=== PATIENT | female | born 1985 | race African-American/Black ===

== ENCOUNTER 2016-09-15 07:29 | Emergency (ER) | payer SELFPAY ==
[2016-09-15 07:39] VITALS: BP 156/102
[2016-09-15] MEDS ORDERED: ASPIRIN 81 MG TABLET, CHEWABLE PO ONE (07:56)
--- NOTE | 2016-09-15 08:09 | ER Document Report ---
ED Cardiac - General Chief Complaint: Chest Pain Stated Complaint: CHEST PAIN Mode of Arrival: Ambulatory Information source: Patient Notes: Patient presents complaining of midsternal chest pain that she describes as a pulsing tightness off and on for the past 3 days that worsened today. Patient complains of occasionally feeling lightheaded and what she describes feeling off balance. Patient also reports some hot and cold chills. Patient states chest pain is worse when she is laying flat. Patient denies any cough, urinary symptoms, abdominal pain, nausea, or vomiting. Patient states she has had chest pain similar to this several times a month chronically for years but has never been diagnosed with anything previously except for palpitations. TRAVEL OUTSIDE OF THE [place] IN LAST 30 DAYS: No - HPI Patient complains to provider of: Chest pain, Chest tightness. denies: Shortness of breath Was the onset of pain: Gradual Is the pain a: Chronic problem Chest pain location: Substernal Quality of pain: Tightness Pain level currently: 4 Chest pain precipitating factors: At Rest Cardiac risk factors: Smoker, + Family history. denies: Diabetes, Hypertension , Dyslipidemia, Hx DE Associated symptoms: Lightheaded. 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 Denies: Hx Hiatal Hernia, Hx Ulcer Infectious Medical History: Denies: Hx HIV Past Surgical History: Reports: Hx Section Review of Systems - Review of Systems Constitutional: No symptoms reported. denies: Fever, Recent illness EENT: No symptoms reported Cardiovascular: Chest pain, Lightheaded. denies: Palpitations Respiratory: No symptoms reported. denies: Cough, Short of breath Gastrointestinal: No symptoms reported. denies: Abdominal pain, Nausea, Vomiting Genitourinary: No symptoms reported. denies: Dysuria, Flank pain Female Genitourinary: No symptoms reported Musculoskeletal: No symptoms reported. denies: Back pain, Neck pain Skin: No symptoms reported Hematologic/Lymphatic: No symptoms reported Neurological/Psychological: No symptoms reported Physical Exam - Vital signs Vitals: Temp Pulse Resp BP Pulse Ox 98.2 F 76 14 156/102 H 100 09/15/16 07:36 09/15/16 07:36 09/15/16 07:36 09/15/16 07:36 09/15/16 07:36 - General General appearance: Appears well, Alert In distress: None Notes: PHYSICAL EXAMINATION: GENERAL: Well-appearing and in no acute distress. HEAD: Atraumatic, normocephalic. EYES: sclera anicteric, conjunctiva are normal. ENT: nares patent. Moist mucous membranes. NECK: Normal range of motion, supple without lymphadenopathy LUNGS: CTAB and equal. No wheezes rales or rhonchi. Patient's anterior chest wall tender with palpation. HEART: Regular rate and rhythm ABDOMEN: Soft, nontender, normal bowel sounds, no guarding. EXTREMITIES: Normal range of motion, no pitting edema. No cyanosis. BACK: No midline tenderness, no step-off or deformity. No CVA tenderness NEUROLOGICAL: Cranial nerves grossly intact. Normal speech. Normal gait. PSYCH: Normal mood, normal affect. SKIN: Warm, Dry, normal turgor, no rashes or lesions noted Course - Re-evaluation Re-evalutation: 09/15/16 The patient has atypical chest pain as the patient's chest pain is not suggestive of pulmonary embolus, cardiac ischemia, aortic dissection, or other serious etiology. Given the extremely low risk of these diagnoses for the test in evaluation for these possibilities does not appear to be indicated at this time. Patient has been instructed to return if the symptoms worsen or change in any way. Heart score 1, perc negative. 09/15/[address] pan regarding patient presentation, history, and diagnostics. Agrees with discharge plan of care. Recommends advising patient to discontinue use of marijuana as it has been known to cause costochondritis - Vital Signs Vital signs: Temp Pulse Resp BP Pulse Ox 98.2 F 76 23 H 156/102 H 100 09/15/16 07:36 09/15/16 07:36 09/15/16 11:00 09/15/16 07:36 09/15/16 11:00 - Laboratory Result Diagrams: 09/15/16 08:21 09/15/16 08:21 Laboratory results interpreted by me: 09/15/16 09/15/16 09/15/16 08:21 08:21 08:21 RDW 16.1 H Chloride 108 H Urine Blood MODERATE H Labs- Entire Visit 09/15/16 09/15/16 09/15/16 08:21 08:21 08:21 WBC 4.7 RBC 4.47 Hgb 12.8 Hct 37.9 MCV 85 MCH 28.7 MCHC 33.8 RDW 16.1 H Plt Count 317 Seg Neutrophils % 51.9 Lymphocytes % 38.3 Monocytes % 5.8 Eosinophils % 3.0 Basophils % 1.0 Absolute Neutrophils 2.4 Absolute Lymphocytes 1.8 Absolute Monocytes 0.3 Absolute Eosinophils 0.1 Absolute Basophils 0.0 Sodium 144.1 Potassium 4.2 Chloride 108 H Carbon Dioxide 23 Anion Gap 13 BUN 7 Creatinine 0.74 Est GFR ( Amer) > 60 Est GFR (Non-Af Amer) > 60 Glucose 93 Calcium 9.9 Total Bilirubin 1.0 Direct Bilirubin 0.3 Indirect Bilirubin Not Reportable Neonat Total Bilirubin Not Reportable AST 28 ALT 31 Alkaline Phosphatase 122 Creatine Kinase 128 CK-MB (CK-2) 0.69 Troponin I < 0.012 Total Protein 8.2 Albumin 4.7 Lipase 77.8 Serum HCG, Qual Urine Color Urine Appearance Urine pH Ur Specific Douglass Urine Protein Urine Glucose (UA) Urine Ketones Urine Blood Urine Nitrite Urine Bilirubin Urine Urobilinogen Ur Leukocyte Esterase Urine WBC (Auto) Urine RBC (Auto) Squamous Epi Cells Auto Urine Mucus (Auto) Urine Ascorbic Acid Urine Opiates Screen Urine Methadone Screen Ur Barbiturates Screen Ur Phencyclidine Scrn Ur Amphetamines Screen U Benzodiazepines Scrn Urine Cocaine Screen U Marijuana (THC) Screen 09/15/16 09/15/16 09/15/16 08:21 08:21 08:21 WBC RBC Hgb Hct MCV MCH MCHC RDW Plt Count Seg Neutrophils % Lymphocytes % Monocytes % Eosinophils % Basophils % Absolute Neutrophils Absolute Lymphocytes Absolute Monocytes Absolute Eosinophils Absolute Basophils Sodium Potassium Chloride Carbon Dioxide Anion Gap BUN Creatinine Est GFR ( Amer) Est GFR (Non-Af Amer) Glucose Calcium Total Bilirubin Direct Bilirubin Indirect Bilirubin Neonat Total Bilirubin AST ALT Alkaline Phosphatase Creatine Kinase CK-MB (CK-2) Troponin I Total Protein Albumin Lipase Serum HCG, Qual NEGATIVE Urine Color YELLOW Urine Appearance SLIGHTLY-CLOUDY Urine pH 6.0 Ur Specific [place] 1.006 Urine Protein NEGATIVE Urine Glucose (UA) NEGATIVE Urine Ketones NEGATIVE Urine Blood MODERATE H Urine Nitrite NEGATIVE Urine Bilirubin NEGATIVE Urine Urobilinogen NEGATIVE Ur Leukocyte Esterase NEGATIVE Urine WBC (Auto) 2 Urine RBC (Auto) 0 Squamous Epi Cells Auto 6 Urine Mucus (Auto) RARE Urine Ascorbic Acid NEGATIVE Urine Opiates Screen NEGATIVE Urine Methadone Screen NEGATIVE Ur Barbiturates Screen NEGATIVE Ur Phencyclidine Scrn NEGATIVE Ur Amphetamines Screen NEGATIVE U Benzodiazepines Scrn NEGATIVE Urine Cocaine Screen NEGATIVE U Marijuana (THC) Screen UNCONFIRMED POSITIVE - Diagnostic Test Radiology reviewed: Reports reviewed - EKG Interpretation by Me EKG shows normal: Sinus rhythm Rate: Normal Rhythm: NSR Discharge - Discharge Clinical Impression: Elevated blood pressure reading, Marijuana use Chest pain Qualifiers: Chest pain type: unspecified Qualified Code(s): R07.9 - Chest pain, unspecified Condition: Stable Disposition: HOME, SELF-CARE Instructions: Chest Pain of Unclear Cause ([facility]), Costochondritis ([facility]), Anti- Inflammatory Medication ([facility]) Additional Instructions: Return immediately for any new or worsening symptoms Followup with your primary care provider, call tomorrow to make a followup appointment Your blood pressure was elevated today recheck with primary doctor one to 2 days to have this reevaluated Avoid use of marijuana as this can lead to costochondritis chest pain symptoms Follow-up with a produce specialist for further evaluation, call tomorrow for an appointment Prescriptions: Naproxen [Naprosyn 250 Nmg Tablet] 1 tab PO BID #14 tablet Forms: Elevated Blood Pressure, Return to Work Referrals: [facility] [Provider Group] - Follow up tomorrow RICHIE HARTMAN MD [ACTIVE STAFF] - Follow up tomorrow
[2016-09-15 08:36] LABS: ABSOLUTE EOSINOPHILS # (AUTO) 0.1 10^3/uL (0.0-0.6); ABSOLUTE LYMPHOCYTES (AUTO) 1.8 10^3/uL (0.5-4.7); ABSOLUTE MONOCYTES (AUTO) 0.3 10^3/uL (0.1-1.4); ABSOLUTE NEUT (AUTO) 2.4 10^3/uL (1.7-8.2); HEMATOCRIT 37.9 % (36.0-47.0); HEMOGLOBIN 12.8 g/dL (12.0-15.5); HGB HCT DIFFERENCE 0.5; LYMPHOCYTES % (AUTO) 38.3 % (13-45); MEAN CORPUSCULAR HEMOGLOBIN 28.7 pg (27.0-33.4); MEAN CORPUSCULAR HGB CONC 33.8 g/dL (32.0-36.0); MEAN CORPUSCULAR VOLUME 85 fl (80-97); MONOCYTES % (AUTO) 5.8 % (3-13); RED BLOOD COUNT 4.47 10^6/uL (3.72-5.28); RED CELL DISTRIBUTION WIDTH 16.1 % (11.5-14.0); SEGMENTED NEUTROPHILS % (AUTO) 51.9 % (42-78); WHITE BLOOD COUNT 4.7 10^3/uL (4.0-10.5)
[2016-09-15 08:44] LABS: APPEARANCE,URINE SLIGHTLY-CLOUDY; BILIRUBIN,URINE NEGATIVE (NEGATIVE); GLUCOSE, URINE NEGATIVE (NEGATIVE); KETONES,URINE NEGATIVE (NEGATIVE); LEUKOCYTE ESTERASE,URINE NEGATIVE (NEGATIVE); NITRITE,URINE NEGATIVE (NEGATIVE); PROTEIN,URINE NEGATIVE (NEGATIVE); URINE SPECIFIC GRAVITY 1.006; UROBILINOGEN,URINE NEGATIVE mg/dL (<2.0)
[2016-09-15] MEDS ORDERED: MAG HYDROX/AL HYDROX/SIMETH SUSP 30 ML UDCUP PO ONE (08:51)
[2016-09-15] MEDS ORDERED: LIDOCAINE 2% VISCOUS SOLN 20 ML UDCUP PO ONE (08:51)
[2016-09-15 08:57] LABS: ALANINE AMINOTRANSFERASE 31 U/L (9-52); ALBUMIN 4.7 g/dL (3.5-5.0); ALKALINE PHOSPHATASE 122 U/L (38-126); ANION GAP 13 (5-19); ASPARTATE AMINO TRANSFERASE 28 U/L (14-36); BILIRUBIN,DIRECT 0.3 mg/dL (0.0-0.4); BLOOD UREA NITROGEN 7 mg/dL (7-20); CALCIUM 9.9 mg/dL (8.4-10.2); CARBON DIOXIDE 23 mmol/L (22-30); CHLORIDE 108 mmol/L (98-107); CREATINE KINASE 128 U/L (30-135); CREATININE RESULT 0.74 mg/dL (0.52-1.25); GLUCOSE 93 mg/dL (75-110); LIPASE 77.8 U/L (23-300); POTASSIUM 4.2 mmol/L (3.6-5.0); SODIUM 144.1 mmol/L (137-145); TOTAL PROTEIN 8.2 g/dL (6.3-8.2)
[2016-09-15 09:15] LABS: URINE BARBITURATES SCREEN NEGATIVE; URINE METHADONE SCREEN NEGATIVE; URINE OPIATES LOW NEGATIVE; URINE PHENCYCLIDINE SCREEN NEGATIVE
[2016-09-15 09:24] LABS: CREATINE KINASE MB 0.69 ng/mL (<4.55); TROPONIN I < 0.012 ng/mL
[2016-09-15] MEDS ORDERED: IBUPROFEN 800 MG TABLET PO ONE (09:38)
--- NOTE | 2016-09-15 14:27 | EKG REPORT ---
SEVERITY:- NORMAL ECG - SINUS RHYTHM : Confirmed by: Alejo Fermin 15-Sep-2016 14:26:13
== END 2016-09-15 11:15 | disposition home or self-care (01) ==
LOC: ER 07:29
DX: R07.9 Chest pain, unspecified (principal); R03.0 Elevated blood-pressure reading, without diagnosis of hypertension; F12.90 Cannabis use, unspecified, uncomplicated; F17.210 Nicotine dependence, cigarettes, uncomplicated
CPT/HCPCS: 93005; 99285; 36415; 82553; 82550; 83690; 84703; 85025; 80053; 81001; 84484; 80307; 71020; 93010; J3490

== ENCOUNTER 2017-08-20 19:35 | Emergency (ER) | payer SELFPAY ==
--- NOTE | 2017-08-20 20:23 | ER Document Report ---
ED Cardiac - General Chief Complaint: Chest Pain Stated Complaint: CHEST PAIN Time Seen by Provider: 08/20/17 20:22 Mode of Arrival: Ambulatory Information source: Patient Notes: 32 yo smoker, rare alcohol, HTN, non DM, non hormone (unknown lipid status) female c/o sharp 5/5 retrosteranl midline chest pain that radaites to the left side at 6 pm tonight while laying on stomach. Associated symptoms rapid heart beat, got up, started feeling really anxious like an tatyana feeling, felt like she couldn't get enough air, felt lightheaded. Now the pain is 3.5/5-no meds. This has been happening for years since teenage. Evaluated in [place] for same symptoms- told her that she had palpitaions, enlarged heart, heart murmur. Also been evaluated at [facility] for the same 09-15-16. Never had echocardiogram, stress test. No recent illness or fever. . FHX: mom [place] age 33, lupus , DM. 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 HEart score is 2. TRAVEL OUTSIDE OF THE [place] IN LAST 30 DAYS: No - Related Data Allergies/Adverse Reactions: codeine [Codeine] Allergy (Verified 09/15/16 07:34) Past Medical History - General Information source: Patient - Social History Smoking Status: Current Every Day Smoker Frequency of alcohol use: None Drug Abuse: None Lives with: Spouse/Significant other Family History: Reviewed & Not Pertinent, CAD - States mother had a heart attack in her 30s - Past Medical History Cardiac Medical History: Reports: Hx Heart Murmur Renal/ Medical History: Denies: Hx Peritoneal Dialysis GI Medical History: Reports: Hx Gastroesophageal Reflux Disease. Denies: Hx Hiatal Hernia, Hx Ulcer Infectious Medical History: Denies: Hx HIV Past Surgical History: Reports: Hx Section - Immunizations Hx Diphtheria, Pertussis, Tetanus Vaccination: No Review of Systems - Review of Systems Constitutional: No symptoms reported EENT: No symptoms reported Cardiovascular: See HPI Respiratory: No symptoms reported Gastrointestinal: No symptoms reported Genitourinary: No symptoms reported Female Genitourinary: No symptoms reported Musculoskeletal: No symptoms reported Skin: No symptoms reported Hematologic/Lymphatic: No symptoms reported Neurological/Psychological: No symptoms reported Physical Exam - Vital signs Vitals: Temp Pulse Resp BP Pulse Ox 98.3 F 76 14 138/91 H 100 08/20/17 20:01 08/20/17 20:01 08/20/17 20:01 08/20/17 20:01 08/20/17 20:01 Interpretation: Normal - General General appearance: Appears well, Alert In distress: None - HEENT Head: Normocephalic, Atraumatic Eyes: Normal Conjunctiva: Normal Pupils: PERRL Mucous membranes: Normal Neck: Supple. No: Lymphadenopathy - Respiratory Respiratory status: No respiratory distress Chest status: Tender - left chest wall very tender Breath sounds: Normal Chest palpation: Normal - Cardiovascular Rhythm: Regular Heart sounds: Normal auscultation Murmur: No - Abdominal Inspection: Normal Distension: No distension Bowel sounds: Normal Tenderness: Nontender Organomegaly: No organomegaly - Back Back: Normal, Nontender. No: CVA tenderness - Extremities General upper extremity: Normal inspection, Nontender, Normal color, Normal ROM , Normal temperature General lower extremity: Normal inspection, Nontender, Normal color, Normal ROM , Normal temperature, Normal weight bearing. No: Trevin's sign - Neurological Neuro grossly intact: Yes Cognition: Normal Orientation: AAOx4 Sharon Coma Scale Eye Opening: Spontaneous [place] Coma Scale Verbal: Oriented [place] Coma Scale Motor: Obeys Commands [place] Coma Scale Total: 15 Speech: Normal Motor strength normal: LUE, RUE, LLE, RLE Sensory: Normal - Psychological Associated symptoms: Normal affect, Normal mood - Skin Skin Temperature: Warm Skin Moisture: Dry Skin Color: Normal Skin irregularity: negative: Rash Course - Re-evaluation Re-evalutation: 08/20/17 23:43 chest pain gone at 2300. slept some. Chest x-ray is negative EKG normal sinus rhythm, no ectopy or acute change 08/21/17 00:34 Consult at 2350 he said to get the second troponin and if it is negative she can be discharged home with PCP follow up 08/21/17 01:16 Second troponin is negative will refer to her PCP and send home tonight with copies of everything. - Vital Signs Vital signs: Temp Pulse Resp BP Pulse Ox 98.3 F 76 19 123/91 H 100 08/20/17 20:01 08/20/17 20:01 08/21/17 01:01 08/21/17 01:01 08/21/17 01:01 - Laboratory Result Diagrams: 08/20/17 21:06 08/20/17 21:06 Laboratory results interpreted by me: 08/20/17 08/20/17 21:06 21:06 RDW 14.3 H Seg Neutrophils % 40.4 L Lymphocytes % 48.8 H Glucose 116 H Discharge - Discharge Clinical Impression: Chest pain Qualifiers: Chest pain type: unspecified Qualified Code(s): R07.9 - Chest pain, unspecified Condition: Good Disposition: HOME, SELF-CARE Instructions: Aspirin (Cardiac) ([facility]), Chest Pain of Unclear Cause ([facility]) Additional Instructions: to er if symptoms recur stop smoking copy of labs, xray, ekg given to you 1 baby aspirin daily Referrals: COOKIE MULLINS MD [ACTIVE STAFF] - Follow up in 3-5 days RICHIE HARTMAN MD [ACTIVE STAFF] - Follow up in 3-5 days
[2017-08-20] MEDS ORDERED: ASPIRIN 81 MG TABLET, CHEWABLE PO ONE (20:40)
[2017-08-20] MEDS ORDERED: ASPIRIN 81 MG TABLET, CHEWABLE ONE (20:42)
[2017-08-20 21:23] LABS: ABSOLUTE BASOPHILS # (AUTO) 0.1 10^3/uL (0.0-0.2); ABSOLUTE EOSINOPHILS # (AUTO) 0.3 10^3/uL (0.0-0.6); ABSOLUTE LYMPHOCYTES (AUTO) 3.2 10^3/uL (0.5-4.7); ABSOLUTE MONOCYTES (AUTO) 0.3 10^3/uL (0.1-1.4); ABSOLUTE NEUT (AUTO) 2.6 10^3/uL (1.7-8.2); BASOPHILS % (AUTO) 1.2 % (0-2); EOSINOPHILS % (AUTO) 4.5 % (0-6); HEMOGLOBIN 12.1 g/dL (12.0-15.5); LYMPHOCYTES % (AUTO) 48.8 % (13-45); MEAN CORPUSCULAR HEMOGLOBIN 29.9 pg (27.0-33.4); MEAN CORPUSCULAR HGB CONC 33.7 g/dL (32.0-36.0); MEAN CORPUSCULAR VOLUME 89 fl (80-97); MONOCYTES % (AUTO) 5.1 % (3-13); PLATELET COUNT 291 10^3/uL (150-450); RED BLOOD COUNT 4.05 10^6/uL (3.72-5.28); RED CELL DISTRIBUTION WIDTH 14.3 % (11.5-14.0); SEGMENTED NEUTROPHILS % (AUTO) 40.4 % (42-78); TOTAL CELLS COUNTED % (AUTO) 100 %; WHITE BLOOD COUNT 6.5 10^3/uL (4.0-10.5)
--- NOTE | 2017-08-20 21:34 | RADIOLOGY REPORT (SQ) ---
EXAM DESCRIPTION: CHEST SINGLE VIEW COMPLETED DATE/TIME: 08/20/2017 9:20 pm REASON FOR STUDY: chest pain COMPARISON: 09/15/2016. EXAM PARAMETERS: NUMBER OF VIEWS: One view. TECHNIQUE: Single frontal radiographic view of the chest acquired. RADIATION DOSE: NA LIMITATIONS: None. FINDINGS: LUNGS AND PLEURA: No opacities, masses or pneumothorax. No pleural effusion. MEDIASTINUM AND HILAR STRUCTURES: No masses. Contour normal. HEART AND VASCULAR STRUCTURES: Heart normal in size. Normal vasculature. BONES: No acute findings. HARDWARE: None in the chest. OTHER: No other significant finding. IMPRESSION: NO ACUTE RADIOGRAPHIC FINDING IN THE CHEST. TECHNICAL DOCUMENTATION: JOB ID: [id number] [employer]- All Rights Reserved Reading location - IP/workstation name: [email or web address]
[2017-08-20 21:41] LABS: ALANINE AMINOTRANSFERASE 19 U/L (9-52); ALBUMIN 4.3 g/dL (3.5-5.0); ALKALINE PHOSPHATASE 88 U/L (38-126); ANION GAP 10 (5-19); ASPARTATE AMINO TRANSFERASE 18 U/L (14-36); BILIRUBIN,DIRECT 0.1 mg/dL (0.0-0.4); BILIRUBIN,TOTAL 0.3 mg/dL (0.2-1.3); BLOOD UREA NITROGEN 7 mg/dL (7-20); CALCIUM 9.8 mg/dL (8.4-10.2); CARBON DIOXIDE 24 mmol/L (22-30); CHLORIDE 106 mmol/L (98-107); CREATINE KINASE 102 U/L (30-135); GLUCOSE 116 mg/dL (75-110); SODIUM 139.9 mmol/L (137-145); TOTAL PROTEIN 6.8 g/dL (6.3-8.2)
[2017-08-20 21:52] LABS: CREATINE KINASE MB 0.76 ng/mL (<4.55)
[2017-08-20 21:53] LABS: TROPONIN I < 0.012 ng/mL
--- NOTE | 2017-08-20 22:21 | EKG REPORT ---
SEVERITY:- NORMAL ECG - SINUS RHYTHM : Confirmed by: Mike Newman MD 20-Aug-2017 22:20:30
[2017-08-21 01:26] VITALS: BP 123/91
== END 2017-08-21 01:49 | disposition home or self-care (01) ==
LOC: ER 19:35
DX: R07.9 Chest pain, unspecified (principal); F17.200 Nicotine dependence, unspecified, uncomplicated; I10 Essential (primary) hypertension; Z88.6 Allergy status to analgesic agent
CPT/HCPCS: 36415; 71045; 80053; 82550; 82553; 84443; 84484; 85025; 93005; 93010; 99285

== ENCOUNTER 2018-07-10 20:17 | Emergency (ER) | payer SELFPAY ==
--- NOTE | 2018-07-10 22:52 | ER Document Report ---
ED Medical Screen (RME) - General Chief Complaint: Flank Pain Stated Complaint: LEFT FLANK PAIN Time Seen by Provider: 07/10/18 22:50 Notes: 33-year-old -[place] female presents with "left kidney pain". Patient reports 2-3 days of a left-sided low back pain. She does not have any dysuria. Does not have any fevers or shaking chills. No vomiting. Patient states she felt similar to this when she had a urinary tract infection in the past. No history of kidney stones. 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 I have treated and performed a rapid initial assessment of this patient. A comprehensive ED assessment and evaluation of the patient, analysis of test results and completion of medical decision making process will be conducted by additional ED providers. PHYSICAL EXAMINATION: GENERAL: Well-appearing, well-nourished and in no acute distress. A&Ox4. Answers questions appropriately. LUNGS: Breath sounds clear to auscultation bilaterally and equal. No wheezes rales or rhonchi. HEART: Regular rate and rhythm without murmurs, rubs, gallops. ABDOMEN: Soft, nondistended abdomen. No guarding, no rebound. Normal bowel sounds present. No CVA tenderness bilaterally. + mild epigastric tenderness (cannot elicit thorough abd exam w/o table, however). Musculoskeletal : Left paralumbar tenderness to palpation. No midline tenderness or step-off TRAVEL OUTSIDE OF THE [place] IN LAST 30 DAYS: No - Related Data Allergies/Adverse Reactions: codeine [Codeine] Allergy (Verified 07/10/18 22:49) Past Medical History - Past Medical History Cardiac Medical History: Reports: Hx Heart Murmur Renal/ Medical History: Denies: Hx Peritoneal Dialysis GI Medical History: Reports: Hx Gastroesophageal Reflux Disease. Denies: Hx Hiatal Hernia, Hx Ulcer Infectious Medical History: Denies: Hx HIV Past Surgical History: Reports: Hx Section - Immunizations Hx Diphtheria, Pertussis, Tetanus Vaccination: No Physical Exam - Vital signs Vitals: Temp Pulse Resp BP Pulse Ox 99.5 F 82 16 126/89 H 100 07/10/18 20:38 07/10/18 20:38 07/10/18 20:38 07/10/18 20:38 07/10/18 20:38 Course - Vital Signs Vital signs: Temp Pulse Resp BP Pulse Ox 99.5 F 82 16 126/89 H 100 07/10/18 20:38 07/10/18 20:38 07/10/18 20:38 07/10/18 20:38 07/10/18 20:38
[2018-07-10 23:09] LABS: ABSOLUTE BASOPHILS # (AUTO) 0.1 10^3/uL (0.0-0.2); ABSOLUTE EOSINOPHILS # (AUTO) 0.1 10^3/uL (0.0-0.6); ABSOLUTE LYMPHOCYTES (AUTO) 1.4 10^3/uL (0.5-4.7); ABSOLUTE MONOCYTES (AUTO) 0.4 10^3/uL (0.1-1.4); ABSOLUTE NEUT (AUTO) 6.2 10^3/uL (1.7-8.2); BASOPHILS % (AUTO) 0.9 % (0-2); EOSINOPHILS % (AUTO) 0.9 % (0-6); HEMATOCRIT 36.2 % (36.0-47.0); HEMOGLOBIN 12.1 g/dL (12.0-15.5); LYMPHOCYTES % (AUTO) 17.2 % (13-45); MEAN CORPUSCULAR HEMOGLOBIN 29.5 pg (27.0-33.4); MEAN CORPUSCULAR HGB CONC 33.5 g/dL (32.0-36.0); MEAN CORPUSCULAR VOLUME 88 fl (80-97); MONOCYTES % (AUTO) 5.4 % (3-13); PLATELET COUNT 365 10^3/uL (150-450); RED BLOOD COUNT 4.12 10^6/uL (3.72-5.28); RED CELL DISTRIBUTION WIDTH 16.2 % (11.5-14.0); SEGMENTED NEUTROPHILS % (AUTO) 75.6 % (42-78); TOTAL CELLS COUNTED % (AUTO) 100 %; WHITE BLOOD COUNT 8.2 10^3/uL (4.0-10.5)
[2018-07-10 23:26] LABS: ALANINE AMINOTRANSFERASE 24 U/L (9-52); ALBUMIN 4.7 g/dL (3.5-5.0); ALKALINE PHOSPHATASE 110 U/L (38-126); ANION GAP 9 (5-19); ASPARTATE AMINO TRANSFERASE 24 U/L (14-36); BILIRUBIN,DIRECT 0.2 mg/dL (0.0-0.4); BILIRUBIN,TOTAL 0.6 mg/dL (0.2-1.3); BLOOD UREA NITROGEN 6 mg/dL (7-20); CALCIUM 9.9 mg/dL (8.4-10.2); CARBON DIOXIDE 26 mmol/L (22-30); CHLORIDE 104 mmol/L (98-107); GLUCOSE 102 mg/dL (75-110); LIPASE 69.7 U/L (23-300); POTASSIUM 4.3 mmol/L (3.6-5.0); SODIUM 139.1 mmol/L (137-145); TOTAL PROTEIN 7.7 g/dL (6.3-8.2)
[2018-07-10 23:34] LABS: AMORPHOUS SEDIMENT,URINE TRACE /HPF; APPEARANCE,URINE CLOUDY; BILIRUBIN,URINE NEGATIVE (NEGATIVE); COLOR,URINE YELLOW; GLUCOSE, URINE NEGATIVE (NEGATIVE); KETONES,URINE NEGATIVE (NEGATIVE); LEUKOCYTE ESTERASE,URINE MODERATE (NEGATIVE); NITRITE,URINE POSITIVE (NEGATIVE); PROTEIN,URINE NEGATIVE (NEGATIVE); URINE SPECIFIC GRAVITY 1.014
[2018-07-11] MEDS ORDERED: CEFTRIAXONE INJ 1000 MG VIAL IM ONE (00:28)
[2018-07-11] MEDS ORDERED: LIDOCAINE 1% INJ-PF (10 MG/ML) 30 ML SDV NEB ONE (00:28)
[2018-07-11] MEDS ORDERED: HYDROCODONE/ACETAMINOPHEN 5-325 MG TABLET PO ONE (00:29)
--- NOTE | 2018-07-11 00:33 | ER Document Report ---
Addendum entered and electronically signed by MAITE MONCADA PA-C 07/11/18 00:39: Discharge - Discharge Clinical Impression: Low back pain Urinary tract infection Qualifiers: Urinary tract infection type: site unspecified Hematuria presence: without hematuria Qualified Code(s): N39.0 - Urinary tract infection, site not specified Condition: Good Disposition: HOME, SELF-CARE Instructions: Cephalexin ([facility]), Low Back Pain ([facility]), Urinary Tract Infection ([facility]) Prescriptions: Hydrocodone/Acetaminophen [[place] 5-325 mg Tablet] 1 tab PO Q6HP PRN #10 tablet PRN Reason: Cephalexin Monohydrate [Keflex 500 mg Capsule] 500 mg PO Q6H 7 Days #28 capsule Referrals: [facility] [Provider Group] - 07/13/18 Original Note: ED General - General Chief Complaint: Flank Pain Stated Complaint: LEFT FLANK PAIN Time Seen by Provider: 07/10/18 22:50 Mode of Arrival: Ambulatory Information source: Patient TRAVEL OUTSIDE OF THE [place] IN LAST 30 DAYS: No - HPI Patient complains to provider of: "PAIN IN LEFT KIDNEY" Onset: Other - 2 DAYS Onset/Duration: Sudden Quality of pain: Sharp Severity: Moderate Pain Level: 4 Associated symptoms: denies: Chills, Fever Exacerbated by: Movement Relieved by: Denies Similar symptoms previously: Yes Recently seen / treated by doctor: No Notes: 33-year-old -Malaysian female coming in today with chief complaint "left kidney pain". History of back pain that felt similar in the past that turned out to be a urinary infection. Patient denies fevers and shaking chills. Denies nausea and vomiting. No history of kidney stones. - Related Data Allergies/Adverse Reactions: codeine [Codeine] Allergy (Verified 07/10/18 22:49) Past Medical History - General Information source: Patient - Social History Smoking Status: Current Every Day Smoker Chew tobacco use (# tins/day): No Frequency of alcohol use: None Drug Abuse: None Family History: Reviewed & Not Pertinent, CAD - States mother had a heart attack in her 30s Patient has suicidal ideation: No Patient has homicidal ideation: No - Past Medical History Cardiac Medical History: Reports: Hx Heart Murmur Renal/ Medical History: Denies: Hx Peritoneal Dialysis GI Medical History: Reports: Hx Gastroesophageal Reflux Disease. Denies: Hx Hiatal Hernia, Hx Ulcer Infectious Medical History: Denies: Hx HIV Past Surgical History: Reports: Hx Section - Immunizations Hx Diphtheria, Pertussis, Tetanus Vaccination: No Review of Systems - Review of Systems Notes: Constitutional: No fevers. No chills. EENT: No eye redness. No eye pain. No ear pain. No sore throat. Cardiovascular: No chest pain. No palpitations. Respiratory: No cough. No shortness of breath. No respiratory distress. Gastrointestinal: No abdominal pain. No nausea, vomiting, or diarrhea. Genitourinary: Atraumatic. No lesions. No pain. No discharge. Musculoskeletal: Atraumatic. No swelling. No deformities. Left back, left flank pain Skin: No rash or lesions. Lymphatic: No swollen lymph nodes. Neurologic: No headache. No syncope. Psychiatric: No suicidal or homicidal ideation. Constitutional: denies: Chills, Fever Physical Exam - Vital signs Vitals: Temp Pulse Resp BP Pulse Ox 99.5 F 82 16 126/89 H 100 07/10/18 20:38 07/10/18 20:38 07/10/18 20:38 07/10/18 20:38 07/10/18 20:38 - Notes Notes: General: Well-developed, well-nourished. In no acute distress. Non-toxic appearing. Cardiac: Well-perfused. Regular rate and rhythm. No murmurs, rubs, or gallops. Pulmonary: No respiratory distress. No cyanosis. Bilateral lung fiels are clear to auscultation. Abdominal: Non-distended. Non-rigid. Bowels sounds are present in all four quadrants. No guarding or rebound. Left CVA tenderness HEENT: Head is atraumatic. Conjunctivae not reddened. No tearing. PERRL. EOMI. Orbits atraumatic. No periorbital swelling or erythema. Oropharynx is without e rythema, swelling, or exudates. Neck: Supple. No adenopathy. No meningismus. Dermatologic: Warm with good turgor. No rash. Atraumatic. Chest: Atraumatic. No chest wall tenderness to palpation. Musculoskeletal: Moves all extremities well. No range of motion deficits. Left lower back tenderness to palpation. No midline tenderness or step-off Genitourinary: Examination deferred Neurologic: No gross neurologic deficits. Psychiatric: Normal mood. Course - Re-evaluation Re-evalutation: 07/11/18 00:31 Positive for UTI on urinalysis. Otherwise labs look good. Rocephin and [place] now. Cephalexin and [place] to go home with. - Vital Signs Vital signs: Temp Pulse Resp BP Pulse Ox 99.5 F 82 16 126/89 H 100 07/10/18 20:38 07/10/18 20:38 07/10/18 20:38 07/10/18 20:38 07/10/18 20:38 - Laboratory Result Diagrams: 07/10/18 22:58 07/10/18 22:58 Laboratory results interpreted by me: 07/10/18 07/10/18 07/10/18 22:53 22:58 22:58 RDW 16.2 H BUN 6 L Urine Blood SMALL H Urine Nitrite POSITIVE H Urine Urobilinogen 4.0 H Ur Leukocyte Esterase MODERATE H Discharge - Discharge Clinical Impression: Low back pain Urinary tract infection Qualifiers: Urinary tract infection type: site unspecified Hematuria presence: without hematuria Qualified Code(s): N39.0 - Urinary tract infection, site not specified Condition: Good Disposition: HOME, SELF-CARE Instructions: Cephalexin ([facility]), Urinary Tract Infection ([facility]), Low Back Pain ([facility]) Prescriptions: Hydrocodone/Acetaminophen [[place] 5-325 mg Tablet] 1 tab PO Q6HP PRN #10 tablet PRN Reason: Cephalexin Monohydrate [Keflex 500 mg Capsule] 500 mg PO Q6H 7 Days #28 capsule Referrals: [facility] [Provider Group] - 07/13/18
[2018-07-11] MEDS ORDERED: LIDOCAINE 1% INJ (10 MG/ML) 10 ML MDV INJ ONE (00:58)
[2018-07-11 02:10] VITALS: BP 128/78
== END 2018-07-11 01:30 | disposition home or self-care (01) ==
LOC: ER 20:17
DX: N39.0 Urinary tract infection, site not specified (principal); M54.5 Low back pain; F17.200 Nicotine dependence, unspecified, uncomplicated; Z88.6 Allergy status to analgesic agent
CPT/HCPCS: 99284; 96372; 36415; 83690; 84703; 85025; 80053; 81001; J0696

== ENCOUNTER 2019-01-22 18:53 | Emergency (ER) | payer SELFPAY ==
--- NOTE | 2019-01-22 20:24 | ER Document Report ---
ED General Pain - General Chief Complaint: Low Back Pain Stated Complaint: BACK PAIN Time Seen by Provider: 01/22/19 20:23 Mode of Arrival: Ambulatory Information source: Patient Notes: HISTORY OF PRESENT ILLNESS: Patient is a 33-year-old female with no pertinent past medical history who presents with acute onset lower back tenderness that began 2 days ago. 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 Mechanism of injury: Lifting heavy objects Location: Low back Onset: Sudden Provocation: Movement, twisting, bending Quality: Aching, cramping Radiation: None Severity: Moderate Timing: Constant Numbness/Tingling: None Associated symptoms: Denies ataxia, no urinary retention, no fecal incontinence REVIEW OF SYSTEMS: CONSTITUTIONAL : Denies fever or chills, no sweats. Denies recent illness. EENT: Denies eye, ear, throat, or mouth pain or symptoms. Denies nasal or sinus congestion. CARDIOVASCULAR: Denies chest pain. RESPIRATORY: Denies cough, cold, or chest congestion. Denies shortness of breath, difficulty breathing, or wheezing. GASTROINTESTINAL: Denies abdominal pain. Denies nausea, vomiting, or diarrhea. Denies constipation. GENITOURINARY: Denies difficulty urinating, painful urination, burning, frequency, or blood in urine. FEMALE GENITOURINARY: Denies vaginal bleeding, abnormal or irregular periods. Last menstrual period MUSCULOSKELETAL: Positive for back pain. SKIN: Denies rash or skin lesions. HEMATOLOGIC : Denies easy bruising or bleeding. LYMPHATIC: Denies swollen, enlarged glands. NEUROLOGICAL: Denies weakness or paralysis or loss of use of either side. Denies problems with gait or speech. Denies sensory or motor loss. PSYCHIATRIC: Denies anxiety or stress or depression. All other systems reviewed and negative. PHYSICAL EXAMINATION: GENERAL: Well-appearing, well-nourished and in no acute distress. HEAD: Atraumatic, normocephalic. No scalp deformity, depression, or crepitance. EYES: Pupils are 3 mm and equal/round/reactive to light, extraocular movements intact, sclera anicteric, conjunctiva are normal. ENT: Nares patent bilaterally, oropharynx clear without exudates or palatal petechia. Moist mucous membranes. No tonsil hypertrophy. NECK: Normal range of motion, supple without lymphadenopathy. LUNGS: Breath sounds present, equal, and clear to auscultation bilaterally. No wheezes, rales, or rhonchi. HEART: Regular rate and rhythm without murmurs, rubs, or gallops. 2+ peripheral pulses. Normal capillary refill. ABDOMEN: Soft, nontender, nondistended. Normoactive bowel sounds. No guarding, no rebound. No masses appreciated. BACK: Normal contour, no midline tenderness. Rectal exam deferred. Mild pain in the paraspinal lower lumbar area, negative straight leg raise bilaterally GENITAL/PELVC: Deferred. EXTREMITIES: Normal range of motion, no obvious deformity. No pitting or edema. No cyanosis and normal capillary refill <2 seconds. NEUROLOGICAL: No focal neurological deficits. Moves all extremities spontaneously and on command. PSYCH: Normal mood, normal affect. No suicidal thoughts/ideations. No homicidal thoughts/ideations. No hallucinations. SKIN: Warm, dry, normal turgor, no rashes or lesions noted. ASSESSMENT AND PLAN: This patient is a 33-year-old female who presents with low back pain that is consistent with lumbar strain. No evidence of acute cauda equina syndrome. 1. Will give intramuscular injection of Toradol and reassess. 2. Will discharge if improved. TRAVEL OUTSIDE OF THE [place] IN LAST 30 DAYS: No - HPI Onset: Yesterday Onset/Duration: Sudden Quality of pain: Achy, Cramping Severity: Moderate Pain Level: 3 Context: New onset Typical of prior episodes of painful crisis: No Associated symptoms: None Exacerbated by: Standing, Movement Relieved by: Denies Similar symptoms previously: No Recently seen / treated by doctor: No - Related Data Allergies/Adverse Reactions: codeine [Codeine] Allergy (Verified 01/22/19 18:54) Past Medical History - General Information source: Patient - Social History Smoking Status: Never Smoker Chew tobacco use (# tins/day): No Frequency of alcohol use: None Drug Abuse: None Lives with: Family Family History: Reviewed & Not Pertinent, CAD - States mother had a heart attack in her 30s Patient has suicidal ideation: No Patient has homicidal ideation: No - Past Medical History Cardiac Medical History: Reports: Hx Heart Murmur Pulmonary Medical History: Reports: None EENT Medical History: Reports: None Neurological Medical History: Reports: None Endocrine Medical History: Reports: None Renal/ Medical History: Reports: None. Denies: Hx Peritoneal Dialysis Malignancy Medical History: Reports: None GI Medical History: Reports: Hx Gastroesophageal Reflux Disease. Denies: Hx Hiatal Hernia, Hx Ulcer Musculoskeletal Medical History: Reports None Skin Medical History: Reports None Psychiatric Medical History: Reports: None Traumatic Medical History: Reports: None Infectious Medical History: Reports: None. Denies: Hx HIV Past Surgical History: Reports: Hx Section - Immunizations Hx Diphtheria, Pertussis, Tetanus Vaccination: No Review of Systems - Review of Systems Constitutional: No symptoms reported EENT: No symptoms reported Cardiovascular: No symptoms reported Respiratory: No symptoms reported Gastrointestinal: No symptoms reported Genitourinary: No symptoms reported Female Genitourinary: No symptoms reported Musculoskeletal: See HPI, Back pain Skin: No symptoms reported Hematologic/Lymphatic: No symptoms reported Neurological/Psychological: No symptoms reported -: Yes All other systems reviewed and negative Physical Exam - Vital signs Vitals: Temp Pulse Resp BP Pulse Ox 100.4 F 93 18 125/89 H 98 01/22/19 19:13 01/22/19 19:13 01/22/19 19:13 01/22/19 19:13 01/22/19 19:13 Interpretation: Normal - General General appearance: Appears well, Alert - HEENT Head: Normocephalic, Atraumatic Eyes: Normal Pupils: PERRL - Respiratory Respiratory status: No respiratory distress Chest status: Nontender Breath sounds: Normal Chest palpation: Normal - Cardiovascular Rhythm: Regular Heart sounds: Normal auscultation Murmur: No - Abdominal Inspection: Normal Distension: No distension Bowel sounds: Normal Tenderness: Nontender Organomegaly: No organomegaly - Back Back: Normal, Nontender - Extremities General upper extremity: Normal inspection, Nontender, Normal color, Normal ROM, Normal temperature General lower extremity: Normal inspection, Nontender, Normal color, Normal ROM, Normal temperature, Normal weight bearing. No: Trevin's sign - Neurological Neuro grossly intact: Yes Cognition: Normal Orientation: AAOx4 [place] Coma Scale Eye Opening: Spontaneous [place] Coma Scale Verbal: Oriented [place] Coma Scale Motor: Obeys Commands [place] Coma Scale Total: 15 Speech: Normal Motor strength normal: LUE, RUE, LLE, RLE Sensory: Normal - Psychological Associated symptoms: Normal affect, Normal mood - Skin Skin Temperature: Warm Skin Moisture: Dry Skin Color: Normal Course - Vital Signs Vital signs: Temp Pulse Resp BP Pulse Ox 99.4 F 69 15 105/69 100 01/22/19 21:49 01/22/19 21:49 01/22/19 21:49 01/22/19 21:49 01/22/19 21:49 Discharge - Discharge Clinical Impression: Acute low back pain Qualifiers: Back pain laterality: midline Sciatica presence: without sciatica Qualified Code(s): M54.5 - Low back pain Condition: Good Disposition: HOME, SELF-CARE Instructions: Low Back Pain ([facility]) Additional Instructions: You have been evaluated in the Emergency Department for low back pain. While here, you were given medications and it is now safe to be discharged home. Please follow-up with your primary physician as instructed in 1 week to be rechecked. Return to the Emergency Department if you experience difficulty walking, difficulty urinating/having a bowel movement, or any other concerning symptoms. Prescriptions: Diclofenac Sodium 75 mg PO BID #30 tablet.dr Forms: Return to Work Print Language: [place]
[2019-01-22] MEDS ORDERED: KETOROLAC TROMETHAMINE 60 MG/2 ML SDV IM ONE (21:09)
[2019-01-22 21:50] VITALS: BP 105/69
== END 2019-01-22 21:50 | disposition home or self-care (01) ==
LOC: ER 18:53
DX: M54.5 Low back pain (principal); M54.2 Cervicalgia; Z88.6 Allergy status to analgesic agent
CPT/HCPCS: 99283; 96374; J1885